=== PATIENT | female | born 1985 | race Caucasian/White ===

== ENCOUNTER 2018-09-28 16:08 | Outpatient (CLI) | payer MEDICAID ==
[2018-09-28 22:27] LABS: ADD UMIC NO; UR ASCORBIC ACID NEGATIVE (NEGATIVE); UR BILIRUBIN (Dip) NEGATIVE (NEGATIVE); UR BLOOD (Dip) NEGATIVE (NEGATIVE); UR CLARITY CLEAR (CLEAR); UR COLOR STRAW (YELLOW); UR GLUCOSE (Dip) NEGATIVE (NEGATIVE); UR KETONES (Dip) NEGATIVE (NEGATIVE); UR LEUKOCYTE ESTERASE (Dip) NEGATIVE Leu/ul (NEGATIVE); UR NITRITE (Dip) NEGATIVE (NEGATIVE); UR SPECIFIC GRAVITY (Dip) 1.002 (1.003-1.030); UR TOTAL PROTEIN (Dip) NEGATIVE (NEGATIVE); UR UROBILINOGEN (Dip) NEGATIVE (NEGATIVE)
== END 2018-09-28 23:43 | disposition home or self-care (01) ==
LOC: OBT 16:08 → L-D 16:11 → OBT 23:43
DX: O47.1 False labor at or after 37 completed weeks of gestation (principal); Z3A.37 37 weeks gestation of pregnancy; O41.03X0 Oligohydramnios, third trimester, not applicable or unspecified; O26.893 Other specified pregnancy related conditions, third trimester; R30.0 Dysuria
CPT/HCPCS: 76818; 81003; 87086

== ENCOUNTER 2018-10-11 22:27 | Outpatient (CLI) | payer MEDICAID ==
[2018-10-12 01:08] LABS: ADD UMIC NO; UR ASCORBIC ACID NEGATIVE (NEGATIVE); UR BILIRUBIN (Dip) NEGATIVE (NEGATIVE); UR BLOOD (Dip) NEGATIVE (NEGATIVE); UR CLARITY CLEAR (CLEAR); UR COLOR YELLOW (YELLOW); UR GLUCOSE (Dip) NEGATIVE (NEGATIVE); UR KETONES (Dip) NEGATIVE (NEGATIVE); UR LEUKOCYTE ESTERASE (Dip) NEGATIVE Leu/ul (NEGATIVE); UR NITRITE (Dip) NEGATIVE (NEGATIVE); UR SPECIFIC GRAVITY (Dip) 1.017 (1.003-1.030); UR TOTAL PROTEIN (Dip) NEGATIVE (NEGATIVE); UR UROBILINOGEN (Dip) 1+ mg/dL (NEGATIVE)
== END 2018-10-12 03:15 | disposition home or self-care (01) ==
LOC: OBT 22:27 → L-D 22:28
DX: O62.9 Abnormality of forces of labor, unspecified (principal); Z3A.38 38 weeks gestation of pregnancy
CPT/HCPCS: 76815; 76818; 81003

== ENCOUNTER 2018-10-17 05:33 | Inpatient (IN) | payer MEDICAID ==
[2018-10-17] MEDS ORDERED: METHYLERGONOVINE 0.2 MG INJ IM ×2 (06:00→11:00)
[2018-10-17] MEDS ORDERED: IBUPROFEN 600 MG TAB PO (06:00)
[2018-10-17] MEDS: MINERAL OIL LIGHT 10 ML VIAL TOP (06:00)
[2018-10-17] MEDS ORDERED: BUTORPHANOL 2 MG INJ IV ×2 (06:00)
[2018-10-17] MEDS ORDERED: MISOPROSTOL 200 MCG TAB PR ×2 (06:00→11:00)
[2018-10-17] MEDS ORDERED: CARBOPROST 250 MCG INJ IM ×2 (06:00→11:00)
[2018-10-17] MEDS ORDERED: OXYTOCIN 30 UNITS/LR 500 ML IV ×2 (06:00→11:00)
[2018-10-17 06:16] LABS: ADD MAN DIFF? NO
[2018-10-17 06:20] LABS: BASOPHILS % 0.4 % (0.0-2.0); EOSINOPHILS % 0.5 % (0.0-7.0); HEMATOCRIT 31.4 % (37.0-47.0); HEMOGLOBIN 9.7 g/dl (12.0-16.0); LYMPHOCYTES # 2.4 10^3/ul (0.8-2.9); LYMPHOCYTES % 28.9 % (15.0-51.0); MEAN CORPUSCULAR HEMOGLOBIN 23.9 pg (29.0-33.0); MEAN CORPUSCULAR HGB CONC 30.9 g/dl (32.0-37.0); MEAN CORPUSCULAR VOLUME 77.3 fl (82.0-101.0); MEAN PLATELET VOLUME 10.4 fl (7.4-10.4); MONOCYTE # 0.6 10^3/ul (0.3-0.9); MONOCYTES % 7.2 % (0.0-11.0); NEUTROPHILS % 61.2 % (39.0-77.0); PLATELET COUNT 209 10^3/UL (140-415); RED BLOOD COUNT 4.06 10^6/ul (4.20-5.40); RED CELL DISTRIBUTION WIDTH 18.6 % (11.5-14.5)
[2018-10-17 06:20] LABS: WHITE BLOOD COUNT 8.2 10^3/ul (4.8-10.8)
[2018-10-17] MEDS ORDERED: FENTAnyl 2MCG/ML-ROPIV 0.2% 100 ML (06:26)
[2018-10-17 06:40] LABS: INR 0.98; PROTIME 13.1 Sec (11.9-14.9)
[2018-10-17 06:41] LABS: PARTIAL THROMBOPLASTIN TIME 26.5 Sec (23.0-35.0)
[2018-10-17] MEDS: LACTATED RINGER'S 1,000 ML IV ×2 (07:16→07:17)
[2018-10-17 07:17] LABS: HEPATITIS B SURFACE ANTIGEN NEGATIVE (NEGATIVE)
[2018-10-17] MEDS ORDERED: DIPHENHYDRAMINE 50 MG INJ IV ×2 (07:30→11:00)
[2018-10-17] MEDS ORDERED: ONDANSETRON 4 MG INJ IV ×2 (07:30→11:00)
[2018-10-17] MEDS ORDERED: NALOXONE (0.4 MG/ML) INJ IV (07:30)
[2018-10-17] MEDS ORDERED: FENTAnyl 2MCG/ML-ROPIV 0.2% 100 ML BAG EPI (07:30)
[2018-10-17] MEDS: OXYTOCIN 30 UNITS/LR 500 ML IV ×2 (08:36→09:13)
[2018-10-17] MEDS: LIDOCAINE 1% (MPF) 30 ML INJ INJ (08:38)
[2018-10-17] MEDS ORDERED: LACTATED RINGER'S 1,000 ML IV* (10:51)
[2018-10-17] MEDS ORDERED: DEXTROSE 5%-LR 1,000 ML IV (10:51)
[2018-10-17] MEDS ORDERED: DIBUCAINE 1% 30 GM OINT TOP (11:00)
[2018-10-17] MEDS ORDERED: ZOLPIDEM 5 MG TAB PO (11:00)
[2018-10-17] MEDS: IBUPROFEN 600 MG TAB PO ×2 (11:21→17:33)
[2018-10-17] MEDS: LANOLIN HPA 1 PKT TOP (11:21)
[2018-10-17] MEDS: WITCH HAZEL/GLYCERIN PAD PR (11:21)
[2018-10-17] MEDS: BENZOCAINE 20% 56 ML SPRAY TOP (11:21)
[2018-10-17] MEDS: OXYCODONE/ASPIRIN (4.88/325) TAB PO (13:11)
[2018-10-17 16:22] LABS: RAPID PLASMA REAGIN NONREACTIVE (NR)
[2018-10-18] MEDS: IBUPROFEN 600 MG TAB PO ×4 (00:27→18:03)
[2018-10-18 08:41] LABS: ADD MAN DIFF? NO
[2018-10-18 08:42] LABS: WHITE BLOOD COUNT 4.2 10^3/ul (4.8-10.8)
[2018-10-18 08:42] LABS: BASOPHILS % 0.7 % (0.0-2.0); EOSINOPHILS % 0.5 % (0.0-7.0); HEMOGLOBIN 8.7 g/dl (12.0-16.0); LYMPHOCYTES # 1.2 10^3/ul (0.8-2.9); LYMPHOCYTES % 27.1 % (15.0-51.0); MEAN CORPUSCULAR HEMOGLOBIN 23.4 pg (29.0-33.0); MEAN PLATELET VOLUME 10.4 fl (7.4-10.4); MONOCYTE # 0.5 10^3/ul (0.3-0.9); MONOCYTES % 10.6 % (0.0-11.0); NEUTROPHIL # 2.5 10^3/ul (1.6-7.5); NEUTROPHILS % 59.7 % (39.0-77.0); PLATELET COUNT 176 10^3/UL (140-415); RED BLOOD COUNT 3.72 10^6/ul (4.20-5.40); RED CELL DISTRIBUTION WIDTH 19.5 % (11.5-14.5)
[2018-10-18] MEDS: OXYCODONE/ASPIRIN (4.88/325) TAB PO (16:10)
[2018-10-19] MEDS: IBUPROFEN 600 MG TAB PO ×3 (00:08→12:35)
[2018-10-19] MEDS: ACETAMINOPHEN 325 MG TAB PO (04:43)
[2018-10-19] MEDS: MEASLES,MUMPS,RUBELLA VACCINE INJ SC* (09:00)
[2018-10-19] MEDS: DIPHTH/TET/ACEL PERTUSS (ADULT) 0.5 ML VIAL IM* (09:00)
[2018-10-19] MEDS: SENNA/DOCUSATE NA (8.6MG/50MG) TAB PO (10:10)
== END 2018-10-19 14:36 | disposition home or self-care (01) | DRG 807 ==
LOC: OBT 05:33 → L-D 05:33 → OBT 05:44 → L-D 05:44 → PP1 10:28
PROVIDERS: Obstetrics & Gynecology
PROC: 10E0XZZ Delivery of Products of Conception, External Approach (ICD-10-PCS; principal; 2018-10-17)
PROC: 0HQ9XZZ Repair Perineum Skin, External Approach (ICD-10-PCS; 2018-10-17)
DX: O62.9 Abnormality of forces of labor, unspecified (principal); Z37.0 Single live birth; Z3A.39 39 weeks gestation of pregnancy
CPT/HCPCS: 62322; 85025; 85610; 85730; 86592; 86850; 86900; 86901; 87340